=== PATIENT | male | born 1960 | race Asian ===

== ENCOUNTER 2025-01-12 06:36 | Day surgery (SDC) | payer OTHER ==
[2025-01-07 17:43] VITALS: BMI 28.5
[2025-01-12] MEDS ORDERED: ONDANSETRON 4 MG/2 ML VIAL IVPUSH PRN (08:15)
[2025-01-12] MEDS ORDERED: LACTATED RINGERS SOLUTION 1,000 ML IV SCH ×2 (08:15→13:00)
[2025-01-12] MEDS ORDERED: MIDAZOLAM HCL 2 MG/2 ML SINGLE DOSE VIAL ONE (12:52)
[2025-01-12] MEDS ORDERED: PROPOFOL 40 ML ONE (12:53)
[2025-01-12] MEDS: ceFAZolin SODIUM 1 GM VIAL IVPB ONE (13:18)
[2025-01-12] MEDS ORDERED: SUCCINYLCHOLINE CHLORIDE 200 MG/10 ML SYRINGE ONE (13:27)
[2025-01-12 15:26] VITALS: TEMP 97.1
[2025-01-12] MEDS ORDERED: oxyCODONE HCL 5 MG TABLET ONE (15:35)
[2025-01-12] MEDS: oxyCODONE HCL 5 MG TABLET PO PRN (15:41)
[2025-01-12 18:10] VITALS: BP 126/68; PULSE 70; RESP 16
== END 2025-01-12 18:05 | disposition home or self-care (01) ==
LOC: JASU-SURG 06:36
PROVIDERS: ATTEND Urology
PROC: 0T7D8DZ Dilation of Urethra with Intraluminal Device, Via Natural or Artificial Opening Endoscopic (ICD-10-PCS; principal; 2025-01-12 12:30)
DX: N40.1 Benign prostatic hyperplasia with lower urinary tract symptoms (principal); R35.1 Nocturia
CPT/HCPCS: C9740; L8699; 94760